=== PATIENT | female | born 1990 | race Caucasian/White ===

== ENCOUNTER 2024-02-13 07:51 | Day surgery (SDC) | payer BC ==
[~2024-02-13 07:51] MED LIST: HYDROmorphone 0.5 MG/0.5 ML SYRINGE IVP PRN; droPERidol 5 MG/2 ML VIAL IVP ONE
[2024-02-13] MEDS: IV FLUID CONTINUATION 1,000 ML IV ONE (08:35)
[2024-02-13] MEDS: MIDAZOLAM 2 MG/2 ML VIAL IV PRN (08:35)
[2024-02-13] MEDS: LACTATED RINGERS 1,000 ML IV SCH (08:44)
[2024-02-13] MEDS: ONDANSETRON 4 MG/2 ML VIAL IVP ONE (08:44)
[2024-02-13] MEDS: SCOPOLAMINE 1 MG/72 HR PATCH TRANSDERM ONE (08:45)
[2024-02-13] MEDS ORDERED: fentaNYL (PF) 50 MCG/ML 2 ML AMP ONE (08:55)
[2024-02-13] MEDS ORDERED: PROPOFOL 10 MG/ML 20 ML VIAL IV ONE (08:55)
[2024-02-13] MEDS ORDERED: diphenhydrAMINE 50 MG/ML 1 ML VIAL ONE (08:55)
[2024-02-13] MEDS ORDERED: KETOROLAC 15 MG/ML 1 ML VIAL ONE (08:55)
[2024-02-13] MEDS ORDERED: MIDAZOLAM 2 MG/2 ML VIAL ONE (08:55)
[2024-02-13] MEDS ORDERED: LIDOCAINE 1% INJ 10MG/ML (20 ML MDV) ONE (08:55)
[2024-02-13] MEDS: ceFAZolin 1,000 MG in SODIUM CHLORIDE 0.9% 1,000 ML IRRIGATION ONE (09:01)
[2024-02-13] MEDS: ROPIVACAINE 5 MG/ML 30 ML VIAL MISCELLANE ONE ×2 (09:14→10:09)
--- NOTE | 2024-02-13 10:22 | P.OP ---
Date of Procedure: 02/13/24 Preoperative Diagnosis: Irritating hardware right proximal tibia Postoperative Diagnosis: Irritating hardware right proximal tibia Procedure(s) Performed: Removal hardware right proximal tibia Anesthesia: DARRYLA Surgeon: Mihai Noguera Breaker Table Worker #1: Fartun Gaspar Estimated Blood Loss (ml): 50 Pathology: none sent Condition: stable Disposition: PACU Indications for Procedure: This is a 33-year-old female that had an open reduction and internal fixation of her right tibial plateau in 2017 at [facility] by another physician. She states that the hardware is irritating her leg and wishes to have it removed. I discussed the surgical nonsurgical treatment options and risks and benefits of each. She wishes to have removal of hardware of her right proximal tibia and informed consent was obtained. Operative Findings: The operative findings are consistent of a retained hardware of the right proximal tibia Description of Procedure: The patient was seen in the preoperative area, the consent was reviewed and the operative site was marked with a skin marker. The patient verified the procedure and the operative site. The patient was then brought to the operating room and positioned on the operating room table in the supine position. Preoperative antibiotics were given intravenously. A general anesthetic was administered by the anesthesia department. Care was taken to make sure that all pressure points were adequately padded. A tourniquet was placed on the upper thigh and the lower extremity was prepped with ChloraPrep and draped in usual sterile fashion. A universal time-out was then performed which confirmed the patient's name, surgical site, ALLERGIES, and consent. The lower extremity was then exsanguinated and tourniquet was inflated to 250 mmHg. Utilizing the prior incision, the skin and subcutaneous tissues were sharply incised on the proximal lateral aspect of the right proximal tibia. Incision was carried down to the plate and screws, which were readily visualized. Next using the appropriate screwdriver, the screws removed from the plate, the plate was then removed from the proximal tibia. There was 2 screws that were underneath the plate, one of which was broken. These were removed utilizing the broken screw removal set. Fluoroscopic x-rays were then obtained which show that the hardware was removed and the fracture was healed. De mineralized bone graft was used to fill the screw holes. The wound was then irrigated. The subcutaneous tissue was closed with 3-0 Vicryl and 3-0 strata fix. Exofin glue was used for the skin and placed with the knee in flexion. After the glue had dried, and Optafoam silver impregnated dressing was applied. A lightly compressive dressing was applied using web roll and Stevan wrap. Patient was then transferred to the stretcher and taken to recovery room in stable condition. Sponge and needle counts were correct. The dental front office assistant RIAZ Gallego was required due the complexity surgery and the need for a skilled surgical pathologist. She assisted in positioning, draping, retraction, and closure of the wound.
[2024-02-13 10:52] VITALS: TEMP 97
[2024-02-13] MEDS: LACTATED RINGERS 1,000 ML IV ONE (13:09)
[2024-02-13 13:17] VITALS: RESP 18
[2024-02-13] MEDS: HYDROcodone/APAP 7.5-325MG 1 EACH TAB PO ONE (13:54)
[2024-02-13 14:54] VITALS: BP 113/70; PULSE 65
--- NOTE | 2024-03-06 18:21 | XR ---
EXAMINATION TYPE: XR knee complete RT, FL guidance operating room DATE OF EXAM: 02/13/2024 10:33 AM COMPARISON: Pre Operative Images if available both CT/MRI or plain film CLINICAL INDICATION: Female, 33 years old with history of HARDWARE REMOVAL; TECHNIQUE: XR knee complete RT, FL guidance operating room, multiple fluoroscopic images provided for procedure. Total fluoroscopy time: 1:31 minutes Total submitted images to PACS: 5 DAP: [id number] mGym2 Gycm2 uGym2 cGycm2 or equivalent. FINDINGS: Fluoroscopic images during hardware removal demonstrate fixation hardware in removal without evidence of fracture. No remaining hardware visualized. No immediate complication identified. IMPRESSION: 1. No evidence for intraoperative complication. 2. Please see the operative/procedural note for further details. [facility], , 03/06/2024 6:18 PM
== END 2024-02-13 15:12 | disposition home or self-care (01) ==
LOC: OR 07:51
PROVIDERS: ATTEND Orthopaedic Surgery
DX: T84.84XA Pain due to internal orthopedic prosthetic devices, implants and grafts, initial encounter (principal); J45.909 Unspecified asthma, uncomplicated; F41.9 Anxiety disorder, unspecified; Z79.1 Long term (current) use of non-steroidal anti-inflammatories (NSAID); Z79.899 Other long term (current) drug therapy; Z87.81 Personal history of (healed) traumatic fracture; Z88.2 Allergy status to sulfonamides; Z88.8 Allergy status to other drugs, medicaments and biological substances; Y83.8 Other surgical procedures as the cause of abnormal reaction of the patient, or of later complication, without mention of misadventure at the time of the procedure
CPT/HCPCS: 81025